=== PATIENT | female | born 1960 | race Caucasian/White ===

== ENCOUNTER → 2019-04-24 13:18 | Outpatient (CLI) | payer BC, SELFPAY ==
--- NOTE | ~2019-04-24 | MM_ITS ---
EXAMINATION: MM screening [facility] BI w stephania HISTORY: Screening mammogram TECHNIQUE: Craniocaudal and mediolateral oblique 3-D tomosynthesis images were obtained and synthetic 2-D images were generated. CAD analysis was submitted and interpreted. COMPARISON: 04/17/2011 bilateral digital screening mammogram BREAST PARENCHYMAL COMPOSITION: The breasts are extremely dense, which lowers the sensitivity of mamm ography. FINDINGS: There is an approximately 3 mm circumscribed mass situated posteriorly in the outer mid rig ht breast. Likely as result of positioning, this is not evident on the previous mammogram from 2011. This may be a benign intramammary lymph node. Diagnostic right mammogram and targeted right breast ul trasound examination are recommended. Otherwise there is no evidence of suspicious mass, calcification, or architectural distortion to sugg est malignancy in either breast. There has been no suspicious interval change. IMPRESSION: 1. Asymmetric 3 mm mass in the posterior outer mid right breast; diagnostic right mammogram and targe will right breast ultrasound examination are recommended. 2. Recommend routine screening mammography in one year. BI-RADS Category 0: Incomplete: Needs additional imaging evaluation. Reviewed, dictated and finalized at location A. ONAL AIRLINE PILOT IMPRESSION: 1. Asymmetric 3 mm mass in the posterior outer mid right breast; diagnostic rig ht mammogram and targeted right breast ultrasound examination are recommended. 2. Recommend routine screening mammography in one year. BI-RADS Category 0: Incomplete: Needs additional imaging evaluation.
--- NOTE | ~2019-04-24 | DEXA_ITS ---
Bone Density Report Name: Annette Jett Age: 59 Sex: Female Ethnicity: White Date of : 1960 Indication: postmenopausal; screening for osteoporosis; hysterectomy; Referring Provider: DANIEL DARNELL Study: Bone densitometry was performed. Exam Date: April 24, 2019 Accession number: [id number] Bone Density: Region BMD T-score Z-score Classification AP Spine (L1-L4) 0.739 -2.8 -1.5 Osteoporosis Femoral Neck (Left) 0.583 -2.4 -1.2 Osteopenia Total Hip (Left) 0.702 -2.0 -1.1 Osteopenia Femoral Neck (Right) 0.544 -2.8 -1.5 Osteoporosis Total Hip (Right) 0.630 -2.6 -1.7 Osteoporosis Total Hip Mean 0.666 -2.3 -1.4 Osteopenia World Health Organization criteria for BMD impression classify patients as: Normal (T-score at or above -1.0), Osteopenia (T-score between -1.0 and -2.5), or Osteoporosis (T-score at or below -2.5). 10-year Fracture Risk: FRAX not reported because: Some T-score for Spine Total or Hip Total or Femoral Neck at or below -2.5 Clinical Information Provided by Patient: Has the following medical conditions: Hysterectomy Patient maximum height was 64 Menopause Age: 42 Drinks caffeinated beverages Onset of menses at age 14 Number of children 2 Impression: The patient has osteoporosis, based on the Total Spine T-score. Discussion: INCREASED RISK OF FRACTURE. BONE DENSITY IS UNDESIRABLY LOW AT ONE OR MORE SKELETAL SITES, CONSISTENT WITH POSTMENOPAUSAL OSTEOPOROSIS. This patient's lowest T-score meets the World Health Organization's (WHO) criteria for osteoporosis at one or more sites (T-score -2.5 or below). In untreated patients, the risk of osteoporotic fracture increases approximately two-fold for each 1.0 SD decrease in T-score. Low bone density is not the only risk factor for fracture; also consider factors such as patient's age, frailty or poor health, risk of falling, risk of injury, previous osteoporotic fracture, family history of osteoporosis, cigarette smoking, low body weight, etc. Not everyone with low bone mineral density has osteoporosis; osteomalacia and other metabolic bone disorders should also be considered. Patients who have osteoporosis should be evaluated for specific diseases and conditions (secondary causes) that may cause or contribute to bone loss. The [place] [employer] of Clinical Endocrinologists (AACE) and National Osteoporosis Foundation (NOF) recommend pharmacologic intervention for all postmenopausal women whose T-score is in this range. The patient should follow a healthful lifestyle (good nutrition with adequate calcium and vitamin D, and appropriate weight-bearing exercise). Follow-Up: Consider a repeat BMD and Vertebral Fracture Assessment (VFA) exam in 2 years or sooner if medically necessary, to reassess this patient's status. Reported by: COCO roth
== END ==
PROVIDERS: Visit Provider Family Medicine
DX: Z12.31 Encounter for screening mammogram for malignant neoplasm of breast (principal); M85.88 Other specified disorders of bone density and structure, other site; N63.15 Unspecified lump in the right breast, overlapping quadrants
CPT/HCPCS: 77063; 77067; 77080

== ENCOUNTER 2019-08-31 09:13 | Outpatient (CLI) | payer BC, SELFPAY ==
--- NOTE | ~2019-08-31 | US_ITS ---
EXAMINATION: US thyroid DATE: 08/31/2019 11:02 INDICATION: Right thyroid nodule TECHNIQUE: Multiple ultrasound images of the thyroid were obtained. COMPARISON: None. FINDINGS: The right thyroid lobe measures 4.3 x 2.0 x 2.7 cm. The left thyroid lobe measures 3.8 x 1.1 x 1.5 c m. Multiple bilateral thyroid nodules. Largest nodule is on the right which is a heterogeneous predo minately solid and isoechoic nodule with smooth margins measuring 3.4 x 1.8 x 2.4 cm and with a few c oarse internal calcifications. (TI-RADS 4, moderately suspicious , FNA if >=1.5 cm, annual followup i s >1 cm). There are also likely benign 3 mm cystic and 6 mm predominant cystic nodules in the right t hyroid. There are a three well-defined wider than tall solid isoechoic left thyroid nodules with smoo th margins and without echogenic foci (TI-RADS 3, mildly suspicious , FNA if >=2.5 cm, annual followu p is >1.5 cm) which measure 9 mm, 8 mm and 6 mm in maximal diameters. Finally there is a TI RADS 4, 6 mm wider than tall hyperechoic left thyroid nodule with smooth margins and without echogenic foci, n odule in the deep left thyroid. IMPRESSION: 1. Multiple bilateral thyroid nodules. Only the 3.4 cm right thyroid nodule meets criteria for biopsy and was subsequently biopsied as was ordered by the referring physician. See separate biopsy report for further detail. Reviewed, dictated and finalized at location A. IMPRESSION: 1. Multiple bilateral thyroid nodules. Only the 3.4 cm right thyroid nodule lisette ts criteria for biopsy and was subsequently biopsied as [facility]. See separate biopsy report for further detail.
--- NOTE | ~2019-08-31 | US_ITS ---
EXAMINATION: US FNA w image guidance DATE: 08/31/2019 13:08 INDICATION: Right thyroid nodule TECHNIQUE: A time-out was performed to verify the patient's name, date of , and procedure to be performed . The procedure and its benefits and risks were discussed with the patient. Risks specifically discus sed included bleeding and infection. The patient understood the risks and agreed to proceed. The neck was prepped and draped in the usual sterile manner. 3 mL 1% lidocaine was used for local anesthesia . 6 passes were made with a 25G needle into the lesion. Appropriate needle location was documented with continuous sonographic guidance. The specimens were passed to the chief medical technologist in the room. A sterile bandage was applied. There were no immediate complications. FINDINGS: Grayscale ultrasound images demonstrate biopsy needles advanced into a 3.4 cm solid right thyroid nod ule. IMPRESSION: 1. Successful ultrasound-guided fine needle aspiration of the 3.4 cm solid right thyroid nodule of c oncern. Reviewed, dictated and finalized at location A. IMPRESSION: 1. Successful ultrasound-guided fine needle aspiration of the 3.4 cm solid rig ht thyroid nodule of concern.
== END 2019-08-31 09:14 | disposition home or self-care (01) ==
PROVIDERS: PCP Family Medicine; Visit Provider Internal Medicine Endocrinology, Diabetes & Metabolism
DX: E04.2 Nontoxic multinodular goiter (principal); M81.0 Age-related osteoporosis without current pathological fracture
CPT/HCPCS: 10005; 76536; 88173; 88305

== ENCOUNTER 2020-02-02 14:31 | Outpatient (CLI) | payer BC, SELFPAY ==
--- NOTE | ~2020-02-02 | US_ITS ---
EXAMINATION: US thyroid DATE: 02/02/2020 15:01 INDICATION: Multinodular goiter TECHNIQUE: Multiple ultrasound images of the thyroid were obtained. COMPARISON: None. FINDINGS: The right thyroid lobe measures 5.4 x 1.8 x 2.3 cm. The left thyroid lobe measures 4.2 x 1.1 x 1.3 c m. Again seen are multiple bilateral thyroid nodules. No significant interval change in a wider than tall 3.1 x 2.3 x 2.0 cm predominantly solid isoechoic nodule with smooth margins and coarse internal calcifications, TI-RADS 4 which was previously biopsied with pathology read as consistent with sushma gn follicular nodule . Also without significant interval change in 3 subcentimeter wider than tall so lid isoechoic nodules with smooth margins and without echogenic foci (TI-RADS 3, mildly suspicious , FNA if >=2.5 cm, annual followup is >1.5 cm) in the left thyroid, the largest measuring 7 mm in maxim al diameter. There are a few additional subcentimeter predominant cystic nodules in both the left and right thyroid. IMPRESSION: 1. Stable appearance of a multinodular goiter with recent benign biopsy of the 3.1 cm thyroid for rig ht thyroid nodule with pathology consistent with benign follicular nodule . No other nodules meeting criteria for biopsy. Reviewed, dictated and finalized at location . ECTION CONSULTANT IMPRESSION: 1. Stable appearance of a multinodular goiter with recent benign biopsy of the 3.1 cm thyroid for right thyroid nodule with pathology consistent with benign follicular nodule . No other nodules meeting criteria for biopsy.
== END 2020-02-02 14:32 | disposition home or self-care (01) ==
LOC: ANHIMG 14:38
PROVIDERS: PCP Family Medicine; Visit Provider Internal Medicine Endocrinology, Diabetes & Metabolism
DX: E04.2 Nontoxic multinodular goiter (principal); M81.0 Age-related osteoporosis without current pathological fracture
CPT/HCPCS: 76536

== ENCOUNTER → 2020-12-29 10:22 | Outpatient (CLI) | payer BC, SELFPAY ==
--- NOTE | ~2020-12-29 | DEXA_ITS ---
Bone Density Report Name: Annette Jett Age: 60 Sex: Female Ethnicity: White Date of : 1960 Indication: postmenopausal osteoporosis; monitoring treatment; hysterectomy; Referring Provider: Zuleyma Mejia Study: Bone densitometry was performed. Exam Date: December 29, 2020 Accession number: [id number] Bone Density: Region BMD T-score Z-score Classification AP Spine (L1-L4) 0.778 -2.4 -1.0 Osteopenia Femoral Neck (Left) 0.564 -2.6 -1.3 Osteoporosis Total Hip (Left) 0.706 -1.9 -1.0 Osteopenia Femoral Neck (Right) 0.553 -2.7 -1.4 Osteoporosis Total Hip (Right) 0.666 -2.3 -1.3 Osteopenia Total Hip Mean 0.686 -2.1 -1.2 Osteopenia World Health Organization criteria for BMD impression classify patients as: Normal (T-score at or above -1.0), Osteopenia (T-score between -1.0 and -2.5), or Osteoporosis (T-score at or below -2.5). 10-year Fracture Risk: FRAX not reported because: Some T-score for Spine Total or Hip Total or Femoral Neck at or below -2.5 Treated for osteoporosis Previous Exams: Region Exam Age BMD T-score BMD Change BMD Change Date g/cm2 vs Baseline vs Previous AP Spine(L1-L4) 12/29/2020 60 0.778 -2.4 0.039* 0.039* 04/24/2019 59 0.739 -2.8 Total Hip(Left) 12/29/2020 60 0.706 -1.9 0.004 0.004 04/24/2019 59 0.702 -2.0 Total Hip(Right) 12/29/2020 60 0.666 -2.3 0.036* 0.036* 04/24/2019 59 0.630 -2.6 *Denotes significance at 95% confidence level, LSC for AP Spine = 0.022 g/cm2, LSC for Total Hip = 0.027 g/cm2 Clinical Information Provided by Patient: Is being treated for osteoporosis Has used the following medications: Vitamin D, Calcium Has the following medical conditions: Hysterectomy Patient maximum height was 64 Menopause Age: 42 Drinks caffeinated beverages Onset of menses at age 14 Number of children 2 Impression: The patient has osteoporosis, based on the Right Femoral Neck T-score. No significant bone loss was observed. Discussion: PATIENT UNDER TREATMENT WITH NO SIGNIFICANT BMD LOSS SINCE LAST EXAM. In an untreated patient, BMD typically declines with age. A lack of decline or gain is usually a sign that treatment is efficacious and fracture risk is reduced. It is important to ask patients whether they are taking their medications and to encourage continued and appropriate compliance with their osteoporosis therapies to reduce fracture risk. It is also im
--- NOTE | ~2020-12-29 | US_ITS ---
EXAMINATION: US thyroid DATE: 12/29/2020 11:06 INDICATION: Nontoxic multinodular goiter. TECHNIQUE: Multiple ultrasound images of the thyroid were obtained. COMPARISON: Ultrasound 02/02/2020, 08/31/19, 08/21/04 FINDINGS: The right thyroid lobe measures 6.4 x 2.2 x 2.8 cm. The left thyroid lobe measures 5.5 x 1.4 x 1.3 c m. The thyroid demonstrates coarsened echotexture and increased vascularity. In the right thyroid lob e, there is a 3.9 cm solid, isoechoic, fwofm-fuzl-fiue nodule with ill-defined margin without echogen ic foci (TI-RADS TR3), stable from 08/31/19 when fine needle aspiration was benign. In the left thyroi d lobe, there is a 9 mm solid, hypoechoic, zeqlv-bpri-qhzc nodule with smooth margin without echogeni c foci (TR4), stable from 08/31/19. In the left thyroid lobe, there is an 11 mm solid, hypoechoic, wid jp-bedp-masq nodule with ill-defined margin without echogenic foci (TR4), increased from 8 mm on 08/30. IMPRESSION: 1. Multinodular goiter. Thyroid ultrasound is recommended in one year. Reviewed, dictated and finalized at location A.
== END ==
PROVIDERS: Visit Provider Internal Medicine Endocrinology, Diabetes & Metabolism
DX: M81.0 Age-related osteoporosis without current pathological fracture (principal); E04.2 Nontoxic multinodular goiter; M85.852 Other specified disorders of bone density and structure, left thigh; M85.851 Other specified disorders of bone density and structure, right thigh
CPT/HCPCS: 76536; 77080

== ENCOUNTER 2021-01-05 11:22 | Outpatient (CLI) | payer BC, SELFPAY ==
[2021-01-05 12:37] LABS: Albumin Level 4.8 g/dL (3.5-5.1); Anion Gap 6 mmol/L (8-16); Blood Urea Nitrogen 20 mg/dL (7-17); Calcium 10.1 mg/dL (8.4-10.2); Carbon Dioxide 33 mmol/L (22-30); Chloride 100 mmol/L (98-107); Estimated Glomerular Filt Rate > 60; Glucose 99 mg/dL (65-110); Phosphorus 3.9 mg/dL (2.5-4.5); Sodium 139 mmol/L (137-145)
[2021-01-05 12:52] LABS: Vitamin D 25 Hydroxy 78.2 ng/mL
== END 2021-01-05 11:23 | disposition home or self-care (01) ==
PROVIDERS: PCP Family Medicine; Visit Provider Internal Medicine Endocrinology, Diabetes & Metabolism
DX: E04.2 Nontoxic multinodular goiter (principal); M81.0 Age-related osteoporosis without current pathological fracture
CPT/HCPCS: 36415; 80069; 82306; 84443

== ENCOUNTER → 2022-01-15 10:15 | Outpatient (CLI) | payer BC, SELFPAY ==
--- NOTE | ~2022-01-15 | DEXA_ITS ---
Bone Density Report Name: DOMINIQUE CRENSHAW Age: 61 Sex: Female Ethnicity: White Date of : 1960 Indication: osteopenia; monitoring treatment; hysterectomy; postmenopausal Referring Provider: Zuleyma Mejia Study: Bone densitometry was performed. Exam Date: January 15, 2022 Accession number: [id number] Bone Density: Region BMD T-score Z-score Classification AP Spine (L1-L4) 0.815 -2.1 -0.6 Osteopenia Femoral Neck (Left) 0.558 -2.6 -1.3 Osteoporosis Total Hip (Left) 0.706 -1.9 -0.9 Osteopenia Femoral Neck (Right) 0.576 -2.5 -1.1 Osteoporosis Total Hip (Right) 0.679 -2.2 -1.2 Osteopenia Total Hip Mean 0.693 -2.1 -1.1 Osteopenia World Health Organization criteria for BMD impression classify patients as: Normal (T-score at or above -1.0), Osteopenia (T-score between -1.0 and -2.5), or Osteoporosis (T-score at or below -2.5). 10-year Fracture Risk: FRAX not reported because: Some T-score for Spine Total or Hip Total or Femoral Neck at or below -2.5 Treated for osteoporosis Previous Exams: Region Exam Age BMD T-score BMD Change BMD Change Date g/cm2 vs Baseline vs Previous AP Spine(L1-L4) 01/15/2022 61 0.815 -2.1 0.076* 0.037* 12/29/2020 60 0.778 -2.4 0.039* 0.039* 04/24/2019 59 0.739 -2.8 Total Hip(Left) 01/15/2022 61 0.706 -1.9 0.004 0.000 12/29/2020 60 0.706 -1.9 0.004 0.004 04/24/2019 59 0.702 -2.0 Total Hip(Right) 01/15/2022 61 0.679 -2.2 0.049* 0.013 12/29/2020 60 0.666 -2.3 0.036* 0.036* 04/24/2019 59 0.630 -2.6 *Denotes significance at 95% confidence level, LSC for AP Spine = 0.022 g/cm2, LSC for Total Hip = 0.027 g/cm2 Clinical Information Provided by Patient: Is being treated for osteoporosis Has used the following medications: Boniva (i.e. ibandronate), Vitamin D, Calcium Has the following medical conditions: Hysterectomy Patient maximum height was 64 Menopause Age: 42 Drinks caffeinated beverages Onset of menses at age 14 Number of children 2 Impression: The patient has osteoporosis, based on the Left Femoral Neck T-score. No significant bone loss was observed. Discussion: PATIENT UNDER TREATMENT WITH NO SIGNIFICANT BMD LOSS SINCE LAST EXAM. In an untreated patient, BMD typically declines with age. A lack of decline or gain is usually a sign that treatment is efficacious and fracture r
--- NOTE | ~2022-01-15 | US_ITS ---
EXAMINATION: US thyroid DATE: 01/15/2022 11:13 INDICATION: Nontoxic multinodular goiter. TECHNIQUE: Multiple ultrasound images of the thyroid were obtained. COMPARISON: Ultrasound 12/29/2020, 08/31/2019, 08/21/04 FINDINGS: The right thyroid lobe measures 6.2 x 2.6 x 3.0 cm. The left thyroid lobe measures 4.7 x 1.4 x 1.2 c m. In the right thyroid lobe, there is a 3.9 cm solid, isoechoic, wider than tall nodule with ill-de fined margin without echogenic foci (TI-RADS TR3), stable from 08/31/19 when biopsy was benign. In the left thyroid lobe, there is a 12 mm solid, hypoechoic, wider than tall nodule with ill-defined catalina n without echogenic foci (TR4) that measured 0.8 cm on 08/31/19. In the left thyroid lobe, there is a 5 mm mixed cystic and solid, isoechoic, wider than tall nodule with smooth margin without echogenic f oci (TR2). IMPRESSION: 1. Multinodular goiter. Thyroid ultrasound is recommended in 2 years. Reviewed, dictated and finalized at location A. H STILL OPERATOR
== END ==
PROVIDERS: PCP Family Medicine; Visit Provider Internal Medicine Endocrinology, Diabetes & Metabolism
DX: E04.2 Nontoxic multinodular goiter (principal); M81.0 Age-related osteoporosis without current pathological fracture; M85.88 Other specified disorders of bone density and structure, other site; M85.852 Other specified disorders of bone density and structure, left thigh; M85.851 Other specified disorders of bone density and structure, right thigh
CPT/HCPCS: 76536; 77080

== ENCOUNTER 2022-01-22 11:09 | Outpatient (CLI) | payer BC, SELFPAY ==
[2022-01-22 13:13] LABS: Free T4 Free Thyroxine 0.88 ng/mL (0.78-2.19); Vitamin D 25 Hydroxy 54.7 ng/mL
== END 2022-01-22 11:10 | disposition home or self-care (01) ==
LOC: ANHWCLAB 11:10
PROVIDERS: PCP Family Medicine; Visit Provider Internal Medicine Endocrinology, Diabetes & Metabolism
DX: E04.2 Nontoxic multinodular goiter (principal); M81.0 Age-related osteoporosis without current pathological fracture; E55.9 Vitamin D deficiency, unspecified
CPT/HCPCS: 36415; 82306; 84439; 84443

== ENCOUNTER → 2023-01-16 11:45 | Outpatient (CLI) | payer BC, SELFPAY ==
--- NOTE | ~2023-01-16 | US_ITS ---
EXAMINATION: US thyroid DATE: 01/16/2023 12:05 INDICATION: Multinodular goiter. TECHNIQUE: Multiple ultrasound images of the thyroid were obtained. COMPARISON: Ultrasound 01/15/2022 FINDINGS: The right thyroid lobe measures 6.8 x 3.1 x 2.8 cm. The left thyroid lobe measures 4.6 x 1.3 x 1.4 c m. There are multiple nodules in the thyroid, most of which measure less than 1 cm. In the right thy roid lobe, there is a 4.1 cm solid, isoechoic, wider than tall nodule with ill-defined margin without echogenic foci (TR3), stable from 08/31/19 when biopsy was benign. In the left thyroid lobe, there is an 11 mm solid, isoechoic, wider than tall nodule with ill-defined margin without echogenic foci (TR 3). IMPRESSION: 1. Multinodular goiter, likely not clinically significant. No follow-up is needed. Reviewed, dictated and finalized at location E. DEVELOPER IMPRESSION: 1. Multinodular goiter, likely not clinically significant. No follow-up is need ed.
--- NOTE | ~2023-01-16 | DEXA_ITS ---
Bone Density Report Name: DOMINIQUE CRENSHAW Age: 62 Sex: Female Ethnicity: White Date of : 1960 Indication: osteopenia; monitoring treatment; hysterectomy; Referring Provider: Zuleyma Mejia Study: Bone densitometry was performed. Exam Date: January 16, 2023 Accession number: [id number] Bone Density: Region BMD T-score Z-score Classification AP Spine (L1-L4) 0.789 -2.3 -0.8 Osteopenia Femoral Neck (Left) 0.600 -2.2 -0.9 Osteopenia Total Hip (Left) 0.712 -1.9 -0.8 Osteopenia Femoral Neck (Right) 0.578 -2.4 -1.1 Osteopenia Total Hip (Right) 0.677 -2.2 -1.1 Osteopenia Total Hip Mean 0.695 -2.1 -1.0 Osteopenia World Health Organization criteria for BMD impression classify patients as: Normal (T-score at or above -1.0), Osteopenia (T-score between -1.0 and -2.5), or Osteoporosis (T-score at or below -2.5). 10-year Fracture Risk: FRAX not reported because: Treated for osteoporosis Previous Exams: Region Exam Age BMD T-score BMD Change BMD Change Date g/cm2 vs Baseline vs Previous AP Spine(L1-L4) 01/16/2023 62 0.789 -2.3 0.050* -0.026* 01/15/2022 61 0.815 -2.1 0.076* 0.037* 12/29/2020 60 0.778 -2.4 0.039* 0.039* 04/24/2019 59 0.739 -2.8 Total Hip(Left) 01/16/2023 62 0.712 -1.9 0.010 0.006 01/15/2022 61 0.706 -1.9 0.004 0.000 12/29/2020 60 0.706 -1.9 0.004 0.004 04/24/2019 59 0.702 -2.0 Total Hip(Right) 01/16/2023 62 0.677 -2.2 0.047* -0.002 01/15/2022 61 0.679 -2.2 0.049* 0.013 12/29/2020 60 0.666 -2.3 0.036* 0.036* 04/24/2019 59 0.630 -2.6 *Denotes significance at 95% confidence level, LSC for AP Spine = 0.022 g/cm2, LSC for Total Hip = 0.027 g/cm2 Clinical Information Provided by Patient: Is being treated for osteoporosis Has used the following medications: Boniva (i.e. ibandronate), Vitamin D, Calcium Has the following medical conditions: Hysterectomy Patient maximum height was 64 Menopause Age: 42 Drinks caffeinated beverages Onset of menses at age 14 Number of children 2 Impression: The patient has low bone mass, based on the Right Femoral Neck T-score. The BMD for the AP Spine(L1-L4) decreased, changing by -0.026 since the last DXA exam. Discussion: SIGNIFICANT BONE LOSS OBSERVED. Adherence to therapy (including calcium a
== END ==
PROVIDERS: PCP Internal Medicine Endocrinology, Diabetes & Metabolism; Visit Provider Internal Medicine Endocrinology, Diabetes & Metabolism
DX: M81.0 Age-related osteoporosis without current pathological fracture (principal); M85.89 Other specified disorders of bone density and structure, multiple sites; Z79.899 Other long term (current) drug therapy; E04.2 Nontoxic multinodular goiter
CPT/HCPCS: 76536; 77080

== ENCOUNTER → 2023-01-16 11:48 | Outpatient (CLI) | payer BC, SELFPAY ==
--- NOTE | ~2023-01-16 | MM_ITS ---
EXAMINATION: MM screening [facility] BI w stephania HISTORY: Screening TECHNIQUE: Craniocaudal and mediolateral oblique 3-D tomosynthesis images were obtained and synthetic 2-D images were generated. CAD analysis was submitted and interpreted. COMPARISON: 04/24/2019 and 04/17/2011 BREAST PARENCHYMAL COMPOSITION: The breasts are heterogeneously dense, which may obscure small masses FINDINGS: There is no evidence of suspicious mass, calcification, or architectural distortion to sugg est malignancy in either breast. There has been no suspicious interval change. IMPRESSION: 1. No mammographic evidence of malignancy. 2. Recommend routine screening mammography in one year. BI-RADS Category 1: Negative Reviewed, dictated and finalized at location A. L BENDING MACHINE OPERATOR
== END ==
PROVIDERS: PCP Family Medicine; Visit Provider Physician Assistant
DX: Z12.31 Encounter for screening mammogram for malignant neoplasm of breast (principal)
CPT/HCPCS: 77063; 77067

== ENCOUNTER 2024-06-12 13:57 | Outpatient (CLI) | payer BC, SELFPAY ==
--- NOTE | ~2024-06-12 | MM_ITS ---
EXAMINATION: MM screening iqra BI w stephania HISTORY: Screening TECHNIQUE: Craniocaudal and mediolateral oblique 3-D tomosynthesis images were obtained and synthetic 2-D images were generated. CAD analysis was submitted and interpreted. COMPARISON: Comparison to multiple prior studies sequentially, with oldest reviewed study dated 04/24. BREAST PARENCHYMAL COMPOSITION: Dense: The breasts are extremely dense, which lowers the sensitivity of mammography. FINDINGS: There is no evidence of suspicious mass, calcification, or architectural distortion to sugg est malignancy in either breast. There has been no suspicious interval change. IMPRESSION: 1. No mammographic evidence of malignancy. 2. Recommend routine screening mammography in one year. BI-RADS Category 1: Negative Reviewed, dictated and finalized at location A.
--- OUTSIDE RECORDS SUMMARY | 2024-06-12 14:03 | XMS_ITS | Clinical Summary ---
Author Organization [facility] [place] [address] Address [address] [place] [id number] Care Team Providers Care Buttonhole Facer Name Role Phone Patricia Portillo MD Primary Care Provider [phone] Allergies Active Allergy Reactions Criticality Noted Date Comments Codeine Medications No known medications Active Problems No known active problems Social History Tobacco Use Types Packs/Day Years Used Date Smoking Tobacco: Never Assessed Comments Unknown Sex and Gender Information Value Date Recorded Sex Assigned at Not on file Legal Sex Female 10:50 PM EDGE TRIMMER Gender Identity Not on file Sexual Orientation Not on file Obstetrics History Last Filed Vital Signs Vital Sign Reading Time Taken Comments Blood Pressure 129/78 01/30/2023 4:20 PM EDGE TRIMMER Pulse 99 01/30/2023 4:20 PM EDGE TRIMMER Temperature 36.7 C (98.1 F) 01/30/2023 4:20 PM EDGE TRIMMER Respiratory Rate 18 01/30/2023 4:20 PM EDGE TRIMMER Oxygen Saturation 99% 01/30/2023 4:20 PM EDGE TRIMMER Inhaled Oxygen Concentration - - Weight 51.1 kg (112 lb 11.2 oz) 01/30/2023 4:20 PM EDGE TRIMMER Height 160 cm (5' 3 ) 01/30/2023 4:20 PM EDGE TRIMMER Body Mass Index 19.96 01/30/2023 4:20 PM EDGE TRIMMER Plan of Treatment Health Maintenance Due Date Last Done Comments Breast Cancer Screening-Mammogram 1960 Cervical Cancer Screening 1960 Colon Cancer Screening-Colonoscopy 1960 Depression Screening 1960 Hepatitis C Screening 1960 DTaP/Tdap/Td Vaccine (1 - Tdap) 01/20/1972 Hepatitis B Screening 1979 Regular Well Visit/Exam 18-64 1979 Zoster Vaccine (2 of 2) 03/19/2024 01/23/2024 Covid-19 Vaccine Completed 01/23/2024, 04/2022, 01/01/2022, Additional history exists Influenza Vaccine Completed 01/23/2024, , 01/01/2022, Additional history exists Pneumococcal vaccine <65 Aged Out No longer eligible based on patient's age to complete this topic Insurance Weight Wins ACCESS Weight Wins ACCESS Care Teams Buttonhole Facer Relationship Specialty Start Date End Date Patricia Portillo MD PCP - General Family Medicine 01/30/23
--- OUTSIDE RECORDS SUMMARY | 2024-06-12 14:03 | XMS_ITS | Referral Summary ---
Author Organization [facility] [address] [place] [id number] Scan Special Procedures Technologist Name Role Phone Patricia Portillo MD Primary Care Provider [phone] Allergies Active Allergy Reactions Criticality Noted Date Comments Codeine Medications No known medications Active Problems No known active problems Social History Tobacco Use Types Packs/Day Years Used Date Smoking Tobacco: Never Assessed Comments Unknown Sex and Gender Information Value Date Recorded Sex Assigned at Not on file Legal Sex Female 10:50 PM RIBBON CUTTER Gender Identity Not on file Sexual Orientation Not on file Last Filed Vital Signs Vital Sign Reading Time Taken Comments Blood Pressure 129/78 01/30/2023 4:20 PM RIBBON CUTTER Pulse 99 01/30/2023 4:20 PM RIBBON CUTTER Temperature 36.7 C (98.1 F) 01/30/2023 4:20 PM RIBBON CUTTER Respiratory Rate 18 01/30/2023 4:20 PM RIBBON CUTTER Oxygen Saturation 99% 01/30/2023 4:20 PM RIBBON CUTTER Inhaled Oxygen Concentration - - Weight 51.1 kg (112 lb 11.2 oz) 01/30/2023 4:20 PM RIBBON CUTTER Height 160 cm (5' 3 ) 01/30/2023 4:20 PM RIBBON CUTTER Body Mass Index 19.96 01/30/2023 4:20 PM RIBBON CUTTER Plan of Treatment Not on file Insurance ANTHEM ACCESS ANTHEM ACCESS Care Teams Ct Scan Special Procedures Technologist Relationship Specialty Start Date End Date Patricia Portillo MD PCP - General Family Medicine 01/30/23
== END 2024-06-12 13:58 | disposition home or self-care (01) ==
LOC: ANHIMG 14:01
PROVIDERS: PCP Family Medicine; Visit Provider Family Medicine
DX: Z12.31 Encounter for screening mammogram for malignant neoplasm of breast (principal)
CPT/HCPCS: 77063; 77067

== ENCOUNTER 2024-09-29 14:51 | Outpatient (CLI) | payer SELFPAY ==
--- NOTE | ~2024-09-29 | XR_ITS ---
XR hand BI arthritis min 3V 09/29/2024 15:04 Indication: Pain in the hands. Procedure: 4 views each hand Comparison: No prior studies for comparison. Findings: No fracture, subluxation or dislocation. There are mild symmetric degenerative changes of t he triscaphe, first carpal metacarpal and metacarpal phalangeal joints bilaterally. No erosive change s. No focal soft tissue abnormality. No foreign bodies. Impression: 1: Mild bilateral symmetric polyarticular osteoarthritis. Reviewed, dictated and finalized at location A. Impression: 1: Mild bilateral symmetric polyarticular osteoarthritis.
== END 2024-09-29 14:52 | disposition home or self-care (01) ==
LOC: GOSHIMG 14:52
PROVIDERS: PCP Family Medicine; Visit Provider Student in an Organized Health Care Education/Training Program
DX: M19.041 Primary osteoarthritis, right hand (principal); M19.042 Primary osteoarthritis, left hand
CPT/HCPCS: 73130